=== PATIENT | male | born 1960 | race Two or more races ===

== ENCOUNTER 2025-07-08 10:51 | Emergency (ER) | payer OTHER ==
[~2025-07-08] VITALS: Ht 190.5 cm; Wt 108.5 kg
[2025-07-08] MEDS ORDERED: LISI20TA56 PO (12:48)
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
[2025-07-08 12:52] VITALS: BP 152/101; PULSE 78; RESP 16; TEMP 98.3; O2SAT 97
== END 2025-07-08 12:53 | disposition home or self-care (01) ==
LOC: ER 10:51
DX: I10 Essential (primary) hypertension (principal); Z76.0 Encounter for issue of repeat prescription; Z79.899 Other long term (current) drug therapy